=== PATIENT | female | born 1935 | race Caucasian/White ===

== ENCOUNTER 2018-04-03 12:11 | Inpatient (IN) | payer MEDICARE ==
[~2018-04-03] VITALS: Ht 162.6 cm; Wt 64.7 kg
[2018-04-03] MEDS ORDERED: SODIUM CHLORIDE 0.9% 1,000 ML IV ONE (12:14)
[2018-04-03] MEDS ORDERED: SODIUM CHLORIDE FLUSH 10ML SYR IVF ONE (12:30)
[2018-04-03] MEDS ORDERED: ASPIRIN 81 MG TABLET CHEW PO ONE (12:30)
[2018-04-03 12:37] LABS: BASOPHILS # (AUTO) 0.14 x10^3/uL (0-0.1); BASOPHILS % (AUTO) 2 % (0-1); EOSINOPHILS # (AUTO) 0.12 x10^3/uL (0-0.4); EOSINOPHILS % (AUTO) 2 % (1-7); LYMPHOCYTES % (AUTO) 33 % (22-44); MD NO; MEAN CORPUSCULAR VOLUME 88.2 fL (80-100); MEAN PLATELET VOLUME 7.8 fL (7.4-10.4); MONOCYTES # (AUTO) 0.53 x10^3/uL (0.2-0.8); MONOCYTES % (AUTO) 8 % (2-9); NEUTROPHILS # (AUTO) 3.75 x10^3/uL (1.8-6.8); NEUTROPHILS % (AUTO) 56 % (42-75); PLATELET COUNT 285 x10^3/uL (130-400); RED BLOOD COUNT 3.51 x10^6/uL (3.82-5.3); RED CELL DISTRIBUTION WIDTH 16.4 % (9.6-15.2)
[2018-04-03 12:47] LABS: ALANINE AMINOTRANSFERASE 27 U/L (12-78); ALBUMIN 2.9 g/dL (3.4-5.0); ANION GAP 12 mmol/L (5-15); CALCIUM 11.4 mg/dL (8.5-10.1); CHLORIDE 106 mmol/L (98-107)
[2018-04-03 12:52] LABS: ALKALINE PHOSPHATASE 45 U/L (45-117); CREATININE 1.56 mg/dL (0.55-1.02); TOTAL PROTEIN 6.9 g/dL (6.4-8.2); TROPONIN I 0.058 ng/mL (0.000-0.045)
[2018-04-03 13:02] LABS: MICROSCOPIC AUTO
[2018-04-03 13:03] LABS: BILIRUBIN,TOTAL 0.3 mg/dL (0.2-1.0)
[2018-04-03 13:07] LABS: CULTURE INDICATED? YES
[2018-04-03] MEDS ORDERED: LEVO75TA5 PO (13:12)
[2018-04-03] MEDS ORDERED: BIFI4CAP PO (13:12)
[2018-04-03] MEDS ORDERED: ESTR0.753 PO (13:12)
[2018-04-03] MEDS ORDERED: FERR324T8 PO (13:12)
[2018-04-03] MEDS ORDERED: LEFL10TA PO (13:12)
[2018-04-03] MEDS ORDERED: LOSA25TA6 PO (13:12)
[2018-04-03] MEDS ORDERED: CALC625T13 PO (13:12)
[2018-04-03] MEDS ORDERED: FENO130C6 PO (13:12)
[2018-04-03] MEDS ORDERED: CALC1TAB84 PO (13:12)
[2018-04-03] MEDS ORDERED: AMLO2.5T3 PO (13:12)
[2018-04-03] MEDS ORDERED: LORazepam 2 MG/ML, 1ML IVPush ONE ×3 (13:30→15:00)
[2018-04-03] MEDS ORDERED: CEFTRIAXONE 1,000 MG in SODIUM CHLORIDE 0.9% 50 ML IVPB ONE (13:30)
[2018-04-03] MEDS ORDERED: LORazepam 2 MG/ML, 1ML ONE ×2 (13:31→14:55)
[2018-04-03] MEDS ORDERED: SODIUM CHLORIDE 0.9% 1,000ML IVBOLUS ONE (14:00)
[2018-04-03] MEDS ORDERED: CEFTRIAXONE PMX 1GM/50ML 50 ML ONE (14:31)
[2018-04-03] MEDS ORDERED: ZIPRASIDONE 20 MG INJ IM ONE ×2 (15:25→15:30)
[2018-04-03 15:44] LABS: INTERNATIONAL NORMALIZED RATIO 0.97 (0.93-1.1); PROTHROMBIN TIME 10.1 Seconds (9.6-11.5)
[2018-04-03] MEDS ORDERED: METOPROLOL 1 MG/ML, 5ML ONE ×2 (16:05→16:16)
[2018-04-03] MEDS: METOPROLOL 1 MG/ML, 5ML IVPush PRN ×2 (16:07→16:20)
[2018-04-03] MEDS ORDERED: INSTRUCTION SEE COMMENTS XX ONE (17:30)
[2018-04-03] MEDS ORDERED: BISACODYL 10 MG SUPP PR PRN (17:30)
[2018-04-03] MEDS ORDERED: DOCUSATE 100 MG CAPSULE PO PRN (17:30)
[2018-04-03] MEDS ORDERED: METOPROLOL 1 MG/ML, 5ML IVPush ONE (17:30)
[2018-04-03] MEDS ORDERED: POLYETHYLENE GLYCOL 17 GM PACKET PO PRN (17:30)
[2018-04-03] MEDS: SODIUM CHLORIDE 0.9% 1,000 ML IV SCH (18:08)
[2018-04-03 19:19] LABS: TROPONIN I 0.051 ng/mL (0.000-0.045)
[2018-04-03] MEDS: PANTOPRAZOLE 40 MG IV IVPush SCH (21:30)
[2018-04-03 23:02] LABS: ANION GAP 12 mmol/L (5-15); CALCIUM 10.3 mg/dL (8.5-10.1); CHLORIDE 109 mmol/L (98-107); CREATININE 1.32 mg/dL (0.55-1.02)
[2018-04-04 04:29] LABS: BASOPHILS # (AUTO) 0.09 x10^3/uL (0-0.1); BASOPHILS % (AUTO) 1 % (0-1); EOSINOPHILS # (AUTO) 0.04 x10^3/uL (0-0.4); EOSINOPHILS % (AUTO) 0 % (1-7); LYMPHOCYTES # (AUTO) 2.04 x10^3/uL (1-3.4); LYMPHOCYTES % (AUTO) 21 % (22-44); MD NO; MEAN CORPUSCULAR HEMOGLOBIN 29.4 pg (27.0-34.8); MEAN CORPUSCULAR HGB CONC 33.2 g/dL (32.4-35.8); MEAN CORPUSCULAR VOLUME 88.6 fL (80-100); MEAN PLATELET VOLUME 7.5 fL (7.4-10.4); MONOCYTES # (AUTO) 0.58 x10^3/uL (0.2-0.8); MONOCYTES % (AUTO) 6 % (2-9); NEUTROPHILS # (AUTO) 6.96 x10^3/uL (1.8-6.8); NEUTROPHILS % (AUTO) 72 % (42-75); PLATELET COUNT 254 x10^3/uL (130-400); RED BLOOD COUNT 3.19 x10^6/uL (3.82-5.3); RED CELL DISTRIBUTION WIDTH 16.4 % (9.6-15.2)
[2018-04-04 04:43] LABS: CHLORIDE 113 mmol/L (98-107)
[2018-04-04 04:44] LABS: ALBUMIN 2.8 g/dL (3.4-5.0); ANION GAP 9 mmol/L (5-15); CHOLESTEROL, TOTAL 302 mg/dL (140-239)
[2018-04-04 04:52] LABS: ALANINE AMINOTRANSFERASE 26 U/L (12-78); ALKALINE PHOSPHATASE 30 U/L (45-117); BILIRUBIN,TOTAL 0.3 mg/dL (0.2-1.0); CHOL/HDL RATIO 9.2; CREATININE 1.21 mg/dL (0.55-1.02); HDL CHOL % 11 % (28-40); HDL CHOLESTEROL (DIRECT) 33 mg/dL (40-60); TOTAL PROTEIN 6.6 g/dL (6.4-8.2); TRIGLYCERIDES 826 mg/dL (50-200)
[2018-04-04] MEDS: SODIUM CHLORIDE 0.9% 1,000 ML IV SCH ×2 (05:37→22:00)
[2018-04-04] MEDS: ACETAMINOPHEN 325 MG TABLET PO PRN (05:37)
[2018-04-04] MEDS: CEFTRIAXONE 2 GM in SODIUM CHLORIDE 0.9% 50 ML IV SCH (09:45)
[2018-04-04 18:45] VITALS: BP 138/77
[2018-04-04] MEDS: LACTOBACILLUS CHEW TABLET PO SCH (21:24)
[2018-04-04] MEDS: CALCIUM POLYCARBOPHIL 625 MG TABLET PO SCH (21:24)
[2018-04-04] MEDS: AMLODIPINE 2.5 MG TABLET PO SCH (21:24)
[2018-04-04] MEDS: FERROUS GLUCONATE 324 MG TABLET PO SCH (21:24)
[2018-04-04] MEDS: LOSARTAN 25MG TABLET PO SCH (21:24)
[2018-04-04] MEDS: PANTOPRAZOLE 40 MG IV IVPush SCH (21:25)
[2018-04-05] VITALS (7 sets, daily range): BP systolic 98–137; BP diastolic 53–72
[2018-04-05 05:41] LABS: BASOPHILS # (AUTO) 0.04 x10^3/uL (0-0.1); BASOPHILS % (AUTO) 0 % (0-1); EOSINOPHILS # (AUTO) 0.12 x10^3/uL (0-0.4); EOSINOPHILS % (AUTO) 1 % (1-7); LYMPHOCYTES # (AUTO) 2.53 x10^3/uL (1-3.4); LYMPHOCYTES % (AUTO) 24 % (22-44); MD NO; MEAN CORPUSCULAR HEMOGLOBIN 29.9 pg (27.0-34.8); MEAN CORPUSCULAR HGB CONC 33.6 g/dL (32.4-35.8); MEAN CORPUSCULAR VOLUME 88.9 fL (80-100); MEAN PLATELET VOLUME 8.1 fL (7.4-10.4); MONOCYTES # (AUTO) 0.56 x10^3/uL (0.2-0.8); MONOCYTES % (AUTO) 5 % (2-9); NEUTROPHILS # (AUTO) 7.23 x10^3/uL (1.8-6.8); NEUTROPHILS % (AUTO) 69 % (42-75); PLATELET COUNT 211 x10^3/uL (130-400); RED BLOOD COUNT 3.07 x10^6/uL (3.82-5.3); RED CELL DISTRIBUTION WIDTH 16.6 % (9.6-15.2)
[2018-04-05 05:54] LABS: ANION GAP 10 mmol/L (5-15); CHLORIDE 112 mmol/L (98-107); CREATININE 0.92 mg/dL (0.55-1.02)
[2018-04-05 06:03] LABS: THYROID STIMULATING HORMONE 0.722 mIU/L (0.358-3.740)
[2018-04-05] MEDS: LEVOTHYROXINE 75 MCG TABLET PO SCH (06:31)
[2018-04-05] MEDS: FERROUS GLUCONATE 324 MG TABLET PO SCH ×2 (08:59→21:33)
[2018-04-05] MEDS: FENOFIBRATE 145 MG TABLET PO SCH (08:59)
[2018-04-05] MEDS: CALCIUM/VITAMIN D3 250-125 TABLET PO SCH (08:59)
[2018-04-05] MEDS: CALCIUM POLYCARBOPHIL 625 MG TABLET PO SCH ×2 (08:59→21:33)
[2018-04-05] MEDS: LOSARTAN 25MG TABLET PO SCH ×2 (09:00→21:33)
[2018-04-05] MEDS: CEFTRIAXONE 2 GM in SODIUM CHLORIDE 0.9% 50 ML IV SCH (09:04)
[2018-04-05] MEDS: LEFLUNOMIDE 20 MG TABLET PO SCH (10:47)
[2018-04-05] MEDS ORDERED: MAGNESIUM SULFATE PMX 2GM/50ML 50 ML IV ONE (15:30)
[2018-04-05] MEDS ORDERED: POTASSIUM PHOSPHATE 44 MEQ in SODIUM CHLORIDE 0.9% 500 ML IV ONE (15:30)
[2018-04-05] MEDS: SODIUM CHLORIDE 0.9% 1,000 ML IV SCH (16:20)
[2018-04-05] MEDS ORDERED: SODIUM CHLORIDE 0.9%, 500ML IVBOLUS ONE (17:00)
[2018-04-05] MEDS ORDERED: FOSFOMYCIN 3 GM PACKET PO ONE (19:00)
[2018-04-05] MEDS: INSULIN LISPRO 100 UNITS/ML, PEN SQ-INSULIN SCH (21:32)
[2018-04-05] MEDS: LACTOBACILLUS CHEW TABLET PO SCH (21:33)
[2018-04-05] MEDS: AMLODIPINE 2.5 MG TABLET PO SCH (21:34)
[2018-04-05] MEDS: PANTOPRAZOLE 40 MG IV IVPush SCH (21:34)
[2018-04-05 23:46] LABS: CLOSTRIDIUM DIFFICILE ANTIGEN NEGATIVE; CLOSTRIDIUM DIFFICILE TOXIN NEGATIVE (Negative)
[2018-04-06] VITALS (13 sets, daily range): BP systolic 99–165; BP diastolic 52–80
[2018-04-06] MEDS: SODIUM CHLORIDE 0.9% 1,000 ML IV SCH (02:43)
[2018-04-06 04:27] LABS: BASOPHILS # (AUTO) 0.04 x10^3/uL (0-0.1); BASOPHILS % (AUTO) 0 % (0-1); EOSINOPHILS # (AUTO) 0.13 x10^3/uL (0-0.4); EOSINOPHILS % (AUTO) 1 % (1-7); LYMPHOCYTES # (AUTO) 2.23 x10^3/uL (1-3.4); LYMPHOCYTES % (AUTO) 22 % (22-44); MD NO; MEAN CORPUSCULAR HEMOGLOBIN 29.1 pg (27.0-34.8); MEAN CORPUSCULAR HGB CONC 33.1 g/dL (32.4-35.8); MEAN CORPUSCULAR VOLUME 87.9 fL (80-100); MEAN PLATELET VOLUME 7.6 fL (7.4-10.4); MONOCYTES # (AUTO) 0.61 x10^3/uL (0.2-0.8); MONOCYTES % (AUTO) 6 % (2-9); NEUTROPHILS # (AUTO) 7.05 x10^3/uL (1.8-6.8); NEUTROPHILS % (AUTO) 70 % (42-75); PLATELET COUNT 214 x10^3/uL (130-400); RED BLOOD COUNT 3.02 x10^6/uL (3.82-5.3); RED CELL DISTRIBUTION WIDTH 17.2 % (9.6-15.2)
[2018-04-06 04:36] LABS: ANION GAP 10 mmol/L (5-15); CALCIUM 8.1 mg/dL (8.5-10.1); CHLORIDE 112 mmol/L (98-107)
[2018-04-06 04:37] LABS: CREATININE 0.85 mg/dL (0.55-1.02)
[2018-04-06] MEDS: LEVOTHYROXINE 75 MCG TABLET PO SCH ×2 (06:32→21:00)
[2018-04-06] MEDS: INSULIN LISPRO 100 UNITS/ML, PEN SQ-INSULIN SCH ×4 (07:00→22:00)
[2018-04-06] MEDS ORDERED: POTASSIUM PHOSPHATE 22 MEQ in SODIUM CHLORIDE 0.9% 500 ML IV ONE (07:30)
[2018-04-06] MEDS: FENOFIBRATE 145 MG TABLET PO SCH (09:35)
[2018-04-06] MEDS: LEFLUNOMIDE 20 MG TABLET PO SCH (09:35)
[2018-04-06] MEDS: CALCIUM/VITAMIN D3 250-125 TABLET PO SCH (09:36)
[2018-04-06] MEDS: FERROUS GLUCONATE 324 MG TABLET PO SCH ×2 (09:36→21:58)
[2018-04-06] MEDS: CALCIUM POLYCARBOPHIL 625 MG TABLET PO SCH ×2 (09:42→21:59)
[2018-04-06] MEDS ORDERED: SODIUM CHLORIDE 0.9% 1,000 ML IV ONE (11:00)
[2018-04-06] MEDS ORDERED: SODIUM CHLORIDE 0.9% 250 ML IV SCH (11:30)
[2018-04-06] MEDS: AMLODIPINE 2.5 MG TABLET PO SCH (21:00)
[2018-04-06] MEDS: LOSARTAN 25MG TABLET PO SCH (21:00)
[2018-04-06] MEDS: LACTOBACILLUS CHEW TABLET PO SCH (21:58)
[2018-04-07 03:15] VITALS: BP 113/56
[2018-04-07 03:50] VITALS: BP 136/80
[2018-04-07 05:47] LABS: BASOPHILS # (AUTO) 0.03 x10^3/uL (0-0.1); BASOPHILS % (AUTO) 0 % (0-1); EOSINOPHILS # (AUTO) 0.13 x10^3/uL (0-0.4); EOSINOPHILS % (AUTO) 1 % (1-7); LYMPHOCYTES # (AUTO) 2.41 x10^3/uL (1-3.4); LYMPHOCYTES % (AUTO) 25 % (22-44); MD NO; MEAN CORPUSCULAR HEMOGLOBIN 29.1 pg (27.0-34.8); MEAN CORPUSCULAR HGB CONC 33.1 g/dL (32.4-35.8); MONOCYTES % (AUTO) 7 % (2-9); NEUTROPHILS # (AUTO) 6.24 x10^3/uL (1.8-6.8); NEUTROPHILS % (AUTO) 66 % (42-75); PLATELET COUNT 229 x10^3/uL (130-400); RED BLOOD COUNT 3.04 x10^6/uL (3.82-5.3); RED CELL DISTRIBUTION WIDTH 16.9 % (9.6-15.2)
[2018-04-07 05:53] LABS: CHLORIDE 114 mmol/L (98-107)
[2018-04-07 05:57] LABS: ANION GAP 12 mmol/L (5-15); CALCIUM 7.7 mg/dL (8.5-10.1); CREATININE 0.77 mg/dL (0.55-1.02)
[2018-04-07] MEDS: LEVOTHYROXINE 75 MCG TABLET PO SCH (06:28)
[2018-04-07 06:34] VITALS: BP_SYST 121; BP_SYST 153; BP_SYST 154; BP_DIAS 65; BP_DIAS 68; BP_DIAS 70
[2018-04-07] MEDS: INSULIN LISPRO 100 UNITS/ML, PEN SQ-INSULIN SCH ×4 (07:00→20:34)
[2018-04-07] MEDS: LEFLUNOMIDE 20 MG TABLET PO SCH (08:00)
[2018-04-07] MEDS: PANTOPROZOLE 40MG TABLET PO SCH (08:00)
[2018-04-07] MEDS: CALCIUM POLYCARBOPHIL 625 MG TABLET PO SCH ×2 (08:00→20:29)
[2018-04-07] MEDS: FENOFIBRATE 145 MG TABLET PO SCH (08:00)
[2018-04-07] MEDS: CALCIUM/VITAMIN D3 250-125 TABLET PO SCH (08:01)
[2018-04-07] MEDS: FERROUS GLUCONATE 324 MG TABLET PO SCH ×2 (08:01→20:25)
[2018-04-07] MEDS: LOSARTAN 25MG TABLET PO SCH ×2 (11:39→20:25)
[2018-04-07 12:16] VITALS: BP_SYST 122; BP_SYST 124; BP_DIAS 70; BP_DIAS 76
[2018-04-07 20:00] VITALS: BP 152/70
[2018-04-07] MEDS: LACTOBACILLUS CHEW TABLET PO SCH (20:24)
[2018-04-07] MEDS: AMLODIPINE 2.5 MG TABLET PO SCH (20:25)
[2018-04-08 01:48] VITALS: BP 145/80
[2018-04-08] MEDS: LEVOTHYROXINE 75 MCG TABLET PO SCH (05:03)
[2018-04-08] MEDS: ACETAMINOPHEN 325 MG TABLET PO PRN (05:06)
[2018-04-08] MEDS: INSULIN LISPRO 100 UNITS/ML, PEN SQ-INSULIN SCH ×4 (07:00→19:38)
[2018-04-08 07:07] VITALS: BP 159/71
[2018-04-08] MEDS: LEFLUNOMIDE 20 MG TABLET PO SCH (08:03)
[2018-04-08] MEDS: CALCIUM POLYCARBOPHIL 625 MG TABLET PO SCH ×2 (08:03→19:31)
[2018-04-08] MEDS: CALCIUM/VITAMIN D3 250-125 TABLET PO SCH (08:04)
[2018-04-08] MEDS: FENOFIBRATE 145 MG TABLET PO SCH (08:04)
[2018-04-08] MEDS: PANTOPROZOLE 40MG TABLET PO SCH (08:04)
[2018-04-08] MEDS: FERROUS GLUCONATE 324 MG TABLET PO SCH ×2 (08:04→19:29)
[2018-04-08] MEDS: LOSARTAN 25MG TABLET PO SCH ×2 (08:04→19:29)
[2018-04-08 12:28] VITALS: BP 155/78
[2018-04-08 19:27] VITALS: BP 137/80
[2018-04-08] MEDS: LACTOBACILLUS CHEW TABLET PO SCH (19:28)
[2018-04-08] MEDS ORDERED: AMLODIPINE 5 MG TABLET PO SCH (21:00)
[2018-04-09 01:08] VITALS: BP 140/77
[2018-04-09] MEDS: LEVOTHYROXINE 75 MCG TABLET PO SCH (04:46)
[2018-04-09 06:41] VITALS: BP 150/72
[2018-04-09] MEDS: INSULIN LISPRO 100 UNITS/ML, PEN SQ-INSULIN SCH ×2 (07:00→11:31)
[2018-04-09] MEDS: CALCIUM/VITAMIN D3 250-125 TABLET PO SCH (08:02)
[2018-04-09] MEDS: CALCIUM POLYCARBOPHIL 625 MG TABLET PO SCH (08:02)
[2018-04-09] MEDS: FERROUS GLUCONATE 324 MG TABLET PO SCH (08:02)
[2018-04-09] MEDS: LOSARTAN 25MG TABLET PO SCH (08:02)
[2018-04-09] MEDS: PANTOPROZOLE 40MG TABLET PO SCH (08:03)
[2018-04-09] MEDS: LEFLUNOMIDE 20 MG TABLET PO SCH (08:03)
[2018-04-09] MEDS: FENOFIBRATE 145 MG TABLET PO SCH (08:03)
[2018-04-09] MEDS ORDERED: AMLODIPINE 5 MG TABLET PO SCH (10:00)
[2018-04-09 10:06] VITALS: BP 138/68
[2018-04-09 12:10] VITALS: BP 133/70
[2018-04-09] MEDS ORDERED: ACID1TAB7 PO (13:51)
[2018-04-09] MEDS ORDERED: ACET325T14 PO (13:51)
[2018-04-09] MEDS ORDERED: PANT40TA5 PO (13:51)
[2018-04-09] MEDS ORDERED: LOPE2TAB59 PO (13:51)
[2018-04-09] MEDS ORDERED: AMLO5TAB7 PO (13:51)
[2018-04-09] MEDS ORDERED: LOPERAMIDE 2 MG CAPSULE PO PRN (15:00)
[2018-04-10] MEDS ORDERED: AMLODIPINE 5 MG TABLET PO SCH (09:00)
== END 2018-04-09 14:47 | DRG 82 ==
LOC: ED 14:36 → EDIP 15:44 → CCU 16:50 → 4WST 04-04 15:59
PROVIDERS: ADMIT Hospitalist; ATTEND Hospitalist
DX: S06.6X9A Traumatic subarachnoid hemorrhage with loss of consciousness of unspecified duration, initial encounter (principal); N17.0 Acute kidney failure with tubular necrosis; B95.2 Enterococcus as the cause of diseases classified elsewhere; B96.20 Unspecified Escherichia coli [E. coli] as the cause of diseases classified elsewhere; E03.9 Hypothyroidism, unspecified; E11.65 Type 2 diabetes mellitus with hyperglycemia; E83.52 Hypercalcemia; E86.0 Dehydration; I10 Essential (primary) hypertension; I16.0 Hypertensive urgency; I99.8 Other disorder of circulatory system; J32.0 Chronic maxillary sinusitis; M06.9 Rheumatoid arthritis, unspecified; N30.91 Cystitis, unspecified with hematuria; R79.1 Abnormal coagulation profile; W18.30XA Fall on same level, unspecified, initial encounter; Z51.5 Encounter for palliative care; R55 Syncope and collapse; Y93.89 Activity, other specified; Y92.89 Other specified places as the place of occurrence of the external cause; Y99.8 Other external cause status
CPT/HCPCS: 36415; 70450; 70544; 70551; 71045; 72125; 80048; 80053; 80061; 81001; 82962; 83036; 83605; 83690; 83735; 83880; 84100; 84132; 84145; 84443; 84484; 85025; 85379; 85610; 85730; 87040; 87077; 87081; 87086; 87186; 87324; 93005; 93306; 93970; 96372; 96374; 96375; 99292; G0378; J0696; J3486; 92523-GN; C9113; J1815; J2060; J3475; J7030; J7040; J7050